=== PATIENT | female | born 1950 | race African-American/Black ===

== ENCOUNTER 2018-05-17 08:40 | Inpatient (IN) ==
[2018-05-17 09:48] LABS: Basophils % 0.1 % (0.0-0.8); Eosinophils % 0.1 % (0.00-10.9); Hematocrit 27.9 VOL% (35.7-47.0); Hemoglobin 9.4 GM/DL (12.0-16.0); Immature Granulocytes % 0.6 %; Immature Granulocytes Absolute 0.05 #; Lymphocytes # 0.3 10*3/uL (1.4-4.0); Lymphocytes % 3.4 % (21.3-54.2); Mean Corpuscular HGB Conc 33.7 GM/DL (32-36); Mean Corpuscular Hemoglobin 31 PG (27-34); Mean Corpuscular Volume 92.7 FL (87-102); Mean Platelet Volume 13.2 FL (9.6-12.0); Monocytes # 0.8 10*3/uL (0.11-0.8); Monocytes % 9.1 % (1.7-12.7); Neutrophils # 7.1 10*3/uL (1.4-7.4); Neutrophils % 86.7 % (38.7-73.9); Red Blood Count 3.01 MC/CUMM (3.8-5.5); Red Cell Distribution Width 15.5 % (9.3-17.3); White Blood Count 8.2 T/CUMM (4-12)
[2018-05-17 09:51] LABS: Platelet Count 74 T/CUMM (130-400)
[2018-05-17 10:07] LABS: Band Neutrophils 4 % (0-10); Giant Platelets Few; Hypochromasia 1+; Lymphocytes 3 % (20-55); Ovalocytes Slight; Platelet Estimate Decreased; Segmented Neutrophils 88 % (50-85); Total Cells Counted 100
[2018-05-17] MEDS ORDERED: VANCOMYCIN INJ 1,000 MG in SODIUM CHLORIDE 0.9% 250 ML IV STA (10:12)
[2018-05-17] MEDS ORDERED: SODIUM CHLORIDE 0.9% 250 ML IV ONE (10:25)
[2018-05-17] MEDS ORDERED: VANCOMYCIN 1,000 MG VIAL ONE (10:25)
[2018-05-17] MEDS ORDERED: HEPARIN 5,000 UNIT/1 ML VIAL ONE (10:32)
[2018-05-17] MEDS ORDERED: LIDOCAINE 1%/EPI INJ 20 ML VIAL ONE (10:32)
[2018-05-17] MEDS ORDERED: BUPIVACAINE MPF 0.25% /EPI 30 ML VIAL ONE (10:32)
[2018-05-17] MEDS ORDERED: BUPIVACAINE 0.5% 50 ML VIAL ONE (10:36)
[2018-05-17] MEDS ORDERED: LIDOCAINE 1% 20 ML VIAL ONE (10:36)
[2018-05-17 11:25] LABS: Calcium 8.6 MG/DL (8.5-10.1); Osmolality,Calculated 278.8 MOS/KG (273-304); Potassium 3.9 MMOL/L (3.5-5.1)
[2018-05-17] MEDS ORDERED: SODIUM CHLORIDE 0.9% 250 ML IV SCH (12:00)
[2018-05-17] MEDS ORDERED: HYDROmorphone 2 MG/1 ML VIAL IV PRN (13:50)
[2018-05-17] MEDS ORDERED: GLUCAGON 1 MG VIAL IM PRN (13:50)
[2018-05-17] MEDS ORDERED: PROMETHAZINE 25 MG/1 ML VIAL IM PRN (13:50)
[2018-05-17] MEDS ORDERED: DEXTROSE 50% 25 GM/50 ML VIAL IV PRN (13:50)
[2018-05-17] MEDS ORDERED: ONDANSETRON 4 MG/2 ML VIAL IV PRN (13:50)
[2018-05-17] MEDS ORDERED: VANCOMYCIN INJ 500 MG in SODIUM CHLORIDE 0.9% 100 ML IV PRN (13:58)
[2018-05-17] MEDS ORDERED: PROPOFOL 200 MG/20 ML VIAL IV ONE (14:19)
[2018-05-17] MEDS ORDERED: fentaNYL 100 MCG/2 ML VIAL ONE (14:19)
[2018-05-17] MEDS ORDERED: EPOETIN ALFA 10,000 UNIT/1 ML VIAL IV PRN (14:19)
[2018-05-17] MEDS ORDERED: MIDAZOLAM 2 MG/2 ML VIAL ONE (14:19)
[2018-05-17] MEDS ORDERED: SODIUM CHLORIDE 0.9% 500 ML IV ONE (14:20)
[2018-05-17] MEDS ORDERED: KETAMINE 500 MG/10 ML VIAL ONE (14:20)
[2018-05-17] MEDS ORDERED: VANCOMYCIN INJ 250 MG in SODIUM CHLORIDE 0.9% 100 ML IV ONE (15:00)
[2018-05-17] MEDS ORDERED: INFLUENZA VIRUS VACCINE 0.5 ML SYRINGE IM ONE (15:30)
[2018-05-17] MEDS ORDERED: HEPARIN 10,000 UNIT/10 ML VIAL IV PRN (16:21)
[2018-05-17] MEDS: CALCIUM ACETATE 667 MG CAPSULE PO SCH (19:47)
[2018-05-17] MEDS: CARVEDILOL 12.5 MG TABLET PO SCH (23:38)
[2018-05-18] MEDS: LOSARTAN 50 MG TABLET PO SCH (09:44)
[2018-05-18] MEDS: CALCIUM ACETATE 667 MG CAPSULE PO SCH ×3 (09:44→17:41)
[2018-05-18] MEDS: CARVEDILOL 12.5 MG TABLET PO SCH ×2 (09:45→20:46)
[2018-05-18] MEDS: SODIUM HYPOCHLORITE 0.25% IRRIG 473 ML BOTTLE TOP SCH (11:13)
[2018-05-18] MEDS: NAFCILLIN 2,000 MG in SODIUM CHLORIDE 0.9% 100 ML IV SCH ×3 (13:56→20:46)
[2018-05-18] MEDS ORDERED: MORPHINE 4 MG/1 ML VIAL IV PRN (20:28)
[2018-05-18] MEDS ORDERED: ASPIRIN CHEW 81 MG TABLET PO ONE (20:28)
[2018-05-18] MEDS ORDERED: NITROGLYCERIN SL 0.4 MG TABLET SL PRN (20:28)
[2018-05-18 21:06] LABS: Basophils % 0.2 % (0.0-0.8); Eosinophils # 0.1 10*3/uL (0.0-0.87); Eosinophils % 0.8 % (0.00-10.9); Hematocrit 24.7 VOL% (35.7-47.0); Hemoglobin 8.4 GM/DL (12.0-16.0); Immature Granulocytes % 0.8 %; Immature Granulocytes Absolute 0.09 #; Lymphocytes # 0.9 10*3/uL (1.4-4.0); Lymphocytes % 7.5 % (21.3-54.2); Mean Corpuscular Hemoglobin 31 PG (27-34); Mean Corpuscular Volume 91.1 FL (87-102); Mean Platelet Volume 13.3 FL (9.6-12.0); Monocytes # 1.6 10*3/uL (0.11-0.8); Monocytes % 13.7 % (1.7-12.7); Neutrophils # 8.7 10*3/uL (1.4-7.4); Red Blood Count 2.71 MC/CUMM (3.8-5.5); White Blood Count 11.3 T/CUMM (4-12)
[2018-05-18 21:07] LABS: Platelet Count 94 T/CUMM (130-400)
[2018-05-18 21:23] LABS: Platelet Estimate Decreased
[2018-05-18 21:32] LABS: Albumin 2.4 G/DL (3.4-5.0); Bilirubin,Total 1.1 MG/DL (0.2-1.0); Calcium 8.8 MG/DL (8.5-10.1); Osmolality,Calculated 276.7 MOS/KG (273-304); Potassium 4.1 MMOL/L (3.5-5.1); Total Protein 5.6 G/DL (6.4-8.3)
[2018-05-19] MEDS: NAFCILLIN 2,000 MG in SODIUM CHLORIDE 0.9% 100 ML IV SCH ×5 (01:45→16:46)
[2018-05-19] MEDS: CALCIUM ACETATE 667 MG CAPSULE PO SCH ×3 (09:19→16:46)
[2018-05-19] MEDS: CARVEDILOL 12.5 MG TABLET PO SCH ×2 (09:19→21:15)
[2018-05-19] MEDS: LOSARTAN 50 MG TABLET PO SCH (09:19)
[2018-05-19] MEDS: SODIUM HYPOCHLORITE 0.25% IRRIG 473 ML BOTTLE TOP SCH (14:47)
[2018-05-20] MEDS: NAFCILLIN 2,000 MG in SODIUM CHLORIDE 0.9% 100 ML IV SCH ×4 (01:34→16:28)
[2018-05-20] MEDS: CALCIUM ACETATE 667 MG CAPSULE PO SCH ×3 (09:30→17:25)
[2018-05-20] MEDS ORDERED: LIDOCAINE 1%/EPI INJ 20 ML VIAL ONE (09:40)
[2018-05-20] MEDS ORDERED: BUPIVACAINE 0.5% /EPI 10 ML VIAL ONE (09:40)
[2018-05-20] MEDS ORDERED: INFLUENZA VIRUS VACCINE 0.5 ML SYRINGE IM ONE (10:00)
[2018-05-20] MEDS ORDERED: SEVOFLURANE 1 UNIT/15 MINUTE INH ONE (10:48)
[2018-05-20] MEDS ORDERED: ONDANSETRON 4 MG/2 ML VIAL ONE (10:48)
[2018-05-20] MEDS ORDERED: METOPROLOL TARTRATE 5 MG/5 ML VIAL IV ONE (10:48)
[2018-05-20] MEDS ORDERED: PROPOFOL 0 MG/0 ML BOTTLE IV ONE (10:48)
[2018-05-20] MEDS ORDERED: fentaNYL 100 MCG/2 ML VIAL ONE (10:48)
[2018-05-20] MEDS ORDERED: MIDAZOLAM 2 MG/2 ML VIAL ONE (10:48)
[2018-05-20] MEDS ORDERED: PROPOFOL 200 MG/20 ML VIAL IV ONE (10:49)
[2018-05-20] MEDS ORDERED: DEXTROSE 50% 25 GM/50 ML VIAL IV PRN (11:15)
[2018-05-20] MEDS ORDERED: GLUCAGON 1 MG VIAL IM PRN (11:15)
[2018-05-20] MEDS: INSULIN REGULAR 100 UNIT/ML SUBCUT SCH ×2 (13:08→16:30)
[2018-05-20] MEDS: SODIUM HYPOCHLORITE 0.25% IRRIG 473 ML BOTTLE TOP SCH (14:06)
[2018-05-20] MEDS: CARVEDILOL 12.5 MG TABLET PO SCH (15:01)
[2018-05-20] MEDS: LOSARTAN 50 MG TABLET PO SCH (15:01)
[2018-05-20 22:12] VITALS: BP 142/88
== END 2018-05-20 17:35 | disposition swing bed (61) | DRG 252 ==
LOC: N.ED 08:40 → N.3E 11:10 → N.EDINP 12:26 → N.3E 13:44
PROVIDERS: ADMIT Emergency Medicine; ATTEND Emergency Medicine

== ENCOUNTER 2018-06-25 12:49 | Inpatient (IN) ==
[2018-06-25 13:40] LABS: Basophils % 0.4 % (0.0-0.8); Eosinophils # 0.1 10*3/uL (0.0-0.87); Eosinophils % 0.7 % (0.00-10.9); Immature Granulocytes % 1.2 %; Immature Granulocytes Absolute 0.08 #; Lymphocytes # 1.3 10*3/uL (1.4-4.0); Lymphocytes % 18.9 % (21.3-54.2); Mean Corpuscular HGB Conc 31.5 GM/DL (32-36); Mean Corpuscular Hemoglobin 34 PG (27-34); Mean Corpuscular Volume 107.3 FL (87-102); Monocytes # 0.7 10*3/uL (0.11-0.8); Monocytes % 9.4 % (1.7-12.7); Neutrophils # 4.8 10*3/uL (1.4-7.4); Neutrophils % 69.4 % (38.7-73.9); Platelet Count 194 T/CUMM (130-400); Red Blood Count 1.51 MC/CUMM (3.8-5.5); White Blood Count 6.9 T/CUMM (4-12)
[2018-06-25 13:51] LABS: Hematocrit 16.2 VOL% (35.7-47.0); Hemoglobin 5.1 GM/DL (12.0-16.0)
[2018-06-25 14:00] LABS: Alanine Aminotransferase < 6 U/L (13-56); Albumin 2.3 G/DL (3.4-5.0); Alkaline Phosphatase 52 U/L (45-117); Aspartate Amino Transferase 22 U/L (0-37); Blood Urea Nitrogen 6 MG/DL (7-18); Calcium 8.3 MG/DL (8.5-10.1); Glucose 104 MG/DL (74-106); Osmolality,Calculated 276.4 MOS/KG (273-304); Potassium 3.2 MMOL/L (3.5-5.1); Sodium 140 MMOL/L (136-145); Total Protein 6.7 G/DL (6.4-8.3)
[2018-06-25] MEDS ORDERED: PANTOPRAZOLE 40 MG VIAL IV STA (14:20)
[2018-06-25 14:41] LABS: Hypochromasia 2+; Macrocytosis 1+
[2018-06-25 14:42] LABS: Platelet Estimate Adequate; Stomatocytes Few
[2018-06-25] MEDS ORDERED: PROMETHAZINE 25 MG/1 ML VIAL IM PRN (15:45)
[2018-06-25] MEDS ORDERED: ONDANSETRON 4 MG/2 ML VIAL IV PRN (15:45)
[2018-06-25] MEDS ORDERED: SODIUM CHLORIDE 0.9% 1,000 ML IV PRN ×2 (15:45→15:48)
[2018-06-25] MEDS ORDERED: cloNIDine 0.1 MG TABLET PO SCH (21:00)
[2018-06-25] MEDS: PANTOPRAZOLE 40 MG VIAL IV SCH (21:31)
[2018-06-25] MEDS: CARVEDILOL 25 MG TABLET PO SCH (21:31)
[2018-06-26 04:46] LABS: Basophils % 0.5 % (0.0-0.8); Eosinophils # 0.1 10*3/uL (0.0-0.87); Eosinophils % 1.2 % (0.00-10.9); Hematocrit 19.9 VOL% (35.7-47.0); Immature Granulocytes % 1.2 %; Immature Granulocytes Absolute 0.07 #; Lymphocytes # 1.1 10*3/uL (1.4-4.0); Mean Corpuscular HGB Conc 31.2 GM/DL (32-36); Mean Corpuscular Hemoglobin 32 PG (27-34); Mean Corpuscular Volume 103.6 FL (87-102); Mean Platelet Volume 11.3 FL (9.6-12.0); Monocytes # 0.8 10*3/uL (0.11-0.8); Monocytes % 12.4 % (1.7-12.7); Neutrophils # 4.1 10*3/uL (1.4-7.4); Neutrophils % 66.7 % (38.7-73.9); Platelet Count 166 T/CUMM (130-400); Red Blood Count 1.92 MC/CUMM (3.8-5.5); White Blood Count 6.1 T/CUMM (4-12)
[2018-06-26 05:04] LABS: Alanine Aminotransferase < 6 U/L (13-56); Alkaline Phosphatase 45 U/L (45-117); Aspartate Amino Transferase 19 U/L (0-37); Blood Urea Nitrogen 9 MG/DL (7-18); Calcium 8.6 MG/DL (8.5-10.1); Glucose 93 MG/DL (74-106); Osmolality,Calculated 277.4 MOS/KG (273-304); Potassium 3.9 MMOL/L (3.5-5.1); Sodium 140 MMOL/L (136-145); Total Protein 6.1 G/DL (6.4-8.3)
[2018-06-26 05:11] LABS: Hemoglobin 6.2 GM/DL (12.0-16.0)
[2018-06-26 06:54] LABS: Platelet Estimate Normal
[2018-06-26 06:55] LABS: Hypochromasia 2+
[2018-06-26 06:56] LABS: Microcytosis 1+
[2018-06-26] MEDS ORDERED: SODIUM CHLORIDE 0.9% 1,000 ML IV PRN ×2 (07:28→10:35)
[2018-06-26] MEDS: CARVEDILOL 25 MG TABLET PO SCH ×2 (08:40→16:28)
[2018-06-26] MEDS: PANTOPRAZOLE 40 MG VIAL IV SCH ×2 (08:40→21:21)
[2018-06-26] MEDS ORDERED: amLODIPine 10 MG TABLET PO SCH (09:00)
[2018-06-27 04:48] LABS: Basophils % 0.6 % (0.0-0.8); Eosinophils # 0.1 10*3/uL (0.0-0.87); Eosinophils % 1.5 % (0.00-10.9); Hematocrit 23.3 VOL% (35.7-47.0); Hemoglobin 7.3 GM/DL (12.0-16.0); Immature Granulocytes % 1.7 %; Immature Granulocytes Absolute 0.12 #; Lymphocytes % 13.8 % (21.3-54.2); Mean Corpuscular HGB Conc 31.3 GM/DL (32-36); Mean Corpuscular Hemoglobin 32 PG (27-34); Mean Corpuscular Volume 100.4 FL (87-102); Mean Platelet Volume 11.5 FL (9.6-12.0); Monocytes # 0.7 10*3/uL (0.11-0.8); Monocytes % 10.1 % (1.7-12.7); Neutrophils # 5.2 10*3/uL (1.4-7.4); Neutrophils % 72.3 % (38.7-73.9); Platelet Count 150 T/CUMM (130-400); Red Blood Count 2.32 MC/CUMM (3.8-5.5); Red Cell Distribution Width 21.4 % (9.3-17.3); White Blood Count 7.2 T/CUMM (4-12)
[2018-06-27 05:10] LABS: Alanine Aminotransferase < 6 U/L (13-56); Alkaline Phosphatase 47 U/L (45-117); Aspartate Amino Transferase 11 U/L (0-37); Blood Urea Nitrogen 21 MG/DL (7-18); Calcium 8.6 MG/DL (8.5-10.1); Glucose 101 MG/DL (74-106); Osmolality,Calculated 275.8 MOS/KG (273-304); Potassium 3.9 MMOL/L (3.5-5.1); Sodium 137 MMOL/L (136-145); Total Protein 5.8 G/DL (6.4-8.3)
[2018-06-27] MEDS ORDERED: SODIUM CHLORIDE 0.9% 1,000 ML IV PRN (07:03)
[2018-06-27] MEDS: CARVEDILOL 25 MG TABLET PO SCH ×3 (08:00→18:41)
[2018-06-27] MEDS: PANTOPRAZOLE 40 MG VIAL IV SCH ×2 (09:48→22:03)
[2018-06-27] MEDS ORDERED: PROPOFOL 200 MG/20 ML VIAL IV ONE (11:15)
[2018-06-27] MEDS ORDERED: HEPARIN 10,000 UNIT/10 ML VIAL IV SCH (15:30)
[2018-06-28 05:25] LABS: Hematocrit 29.6 VOL% (35.7-47.0); Mean Corpuscular HGB Conc 32.4 GM/DL (32-36)
[2018-06-28 05:53] LABS: Basophils # 0.1 10*3/uL (0.0-0.2); Basophils % 0.6 % (0.0-0.8); Eosinophils # 0.1 10*3/uL (0.0-0.87); Eosinophils % 1.5 % (0.00-10.9); Immature Granulocytes % 2.1 %; Immature Granulocytes Absolute 0.17 #; Lymphocytes # 1.1 10*3/uL (1.4-4.0); Lymphocytes % 13.7 % (21.3-54.2); Mean Corpuscular Hemoglobin 32 PG (27-34); Mean Corpuscular Volume 98.3 FL (87-102); Mean Platelet Volume 11.7 FL (9.6-12.0); Monocytes # 0.8 10*3/uL (0.11-0.8); Monocytes % 10.2 % (1.7-12.7); NRBC # 0.06 10*3/uL; Neutrophils # 5.8 10*3/uL (1.4-7.4); Neutrophils % 71.9 % (38.7-73.9); Platelet Count 136 T/CUMM (130-400); Red Cell Distribution Width 19.8 % (9.3-17.3)
[2018-06-28 06:01] LABS: Alanine Aminotransferase < 6 U/L (13-56); Alkaline Phosphatase 50 U/L (45-117); Aspartate Amino Transferase 13 U/L (0-37); Blood Urea Nitrogen 12 MG/DL (7-18); Calcium 8.4 MG/DL (8.5-10.1); Glucose 101 MG/DL (74-106); Osmolality,Calculated 274.7 MOS/KG (273-304); Potassium 3.6 MMOL/L (3.5-5.1); Sodium 138 MMOL/L (136-145)
[2018-06-28 06:10] LABS: Red Blood Count 3.01 MC/CUMM (3.8-5.5)
[2018-06-28 06:11] LABS: Hemoglobin 9.6 GM/DL (12.0-16.0)
[2018-06-28 06:26] LABS: Platelet Estimate Decreased; Polychromasia Few
[2018-06-28] MEDS: PANTOPRAZOLE 40 MG VIAL IV SCH (09:43)
[2018-06-28] MEDS: CARVEDILOL 25 MG TABLET PO SCH (09:43)
[2018-06-28 11:12] VITALS: BP 120/84
== END 2018-06-28 12:21 | disposition home or self-care (01) | DRG 377 ==
LOC: N.ED 12:49 → SUATTDRO 15:45 → N.EDINP 15:45 → N.5E 16:55
PROVIDERS: ADMIT Internal Medicine; ATTEND Internal Medicine Infectious Disease

== ENCOUNTER 2018-11-02 05:33 | Inpatient (IN) ==
[2018-11-02] MEDS ORDERED: ceFAZolin 1,000 MG in SYRINGE 1 EACH IV ONE (06:00)
[2018-11-02 06:28] LABS: Eosinophils # 0.2 10*3/uL (0.0-0.87); Eosinophils % 5.4 % (0.00-10.9); Hematocrit 29.7 VOL% (35.7-47.0); Hemoglobin 9.1 GM/DL (12.0-16.0); Immature Granulocytes % 0.5 %; Immature Granulocytes Absolute 0.02 #; Lymphocytes # 1.1 10*3/uL (1.4-4.0); Mean Corpuscular HGB Conc 30.6 GM/DL (32-36); Mean Corpuscular Volume 99.7 FL (87-102); Mean Platelet Volume 10.6 FL (9.6-12.0); Neutrophils % 53.1 % (38.7-73.9); Platelet Count 205 T/CUMM (130-400); Red Blood Count 2.98 MC/CUMM (3.8-5.5); Red Cell Distribution Width 16.2 % (9.3-17.3); White Blood Count 4.1 T/CUMM (4-12)
[2018-11-02] MEDS: SODIUM CHLORIDE 0.9% 250 ML IV SCH ×2 (06:32→18:46)
[2018-11-02] MEDS ORDERED: ceFAZolin 1,000 MG VIAL ONE (06:36)
[2018-11-02 06:45] LABS: Calcium 8.7 MG/DL (8.5-10.1); Osmolality,Calculated 274.8 MOS/KG (273-304)
[2018-11-02] MEDS ORDERED: HEPARIN 5,000 UNIT/1 ML VIAL ONE (06:56)
[2018-11-02] MEDS ORDERED: THROMBIN TOPICAL (RECOMBINANT) 5,000 UNIT VIAL TOP ONE (06:56)
[2018-11-02] MEDS ORDERED: LIDOCAINE 1%/EPI INJ 20 ML VIAL ONE (06:56)
[2018-11-02] MEDS ORDERED: SODIUM CHLORIDE 0.9% 250 ML IV ONE (09:31)
[2018-11-02] MEDS ORDERED: PHENYLEPHRINE 1 MG/10 ML SYRINGE IV ONE (09:31)
[2018-11-02] MEDS ORDERED: MIDAZOLAM 2 MG/2 ML VIAL ONE (09:31)
[2018-11-02] MEDS ORDERED: fentaNYL 100 MCG/2 ML VIAL ONE (09:31)
[2018-11-02] MEDS ORDERED: PROPOFOL 200 MG/20 ML VIAL IV ONE (09:31)
[2018-11-02] MEDS ORDERED: SEVOFLURANE 1 UNIT/15 MINUTE INH ONE (09:31)
[2018-11-02] MEDS ORDERED: BISACODYL 5 MG TABLET PO PRN (10:10)
[2018-11-02] MEDS ORDERED: ONDANSETRON 4 MG/2 ML VIAL IV PRN (10:10)
[2018-11-02] MEDS ORDERED: ALBUTEROL/IPRATROPIUM 3 ML NEB RESP TX PRN (10:10)
[2018-11-02] MEDS ORDERED: MORPHINE 4 MG/1 ML VIAL IV PRN ×2 (10:10)
[2018-11-02] MEDS ORDERED: VANCOMYCIN INJ 1,000 MG in SODIUM CHLORIDE 0.9% 250 ML IV SCH (10:30)
[2018-11-02] MEDS ORDERED: VANCOMYCIN INJ 1,250 MG in SODIUM CHLORIDE 0.9% 250 ML IV ONE (11:00)
[2018-11-02] MEDS: ACETAMINOPHEN 325 MG TABLET PO PRN (19:11)
[2018-11-02] MEDS: cloNIDine 0.1 MG TABLET PO SCH (21:18)
[2018-11-02] MEDS: APIXABAN 5 MG TABLET PO SCH (21:19)
[2018-11-02] MEDS: CARVEDILOL 25 MG TABLET PO SCH (21:19)
[2018-11-02] MEDS: hydrALAZINE 25 MG TABLET PO SCH (21:19)
[2018-11-03 04:40] LABS: Basophils % 0.6 % (0.0-0.8); Eosinophils # 0.2 10*3/uL (0.0-0.87); Eosinophils % 3.2 % (0.00-10.9); Hematocrit 28.1 VOL% (35.7-47.0); Hemoglobin 8.5 GM/DL (12.0-16.0); Immature Granulocytes % 0.6 %; Immature Granulocytes Absolute 0.03 #; Lymphocytes # 0.5 10*3/uL (1.4-4.0); Mean Corpuscular HGB Conc 30.2 GM/DL (32-36); Mean Corpuscular Volume 99.6 FL (87-102); Mean Platelet Volume 10.6 FL (9.6-12.0); Monocytes % 11.8 % (1.7-12.7); Neutrophils % 73.8 % (38.7-73.9); Platelet Count 199 T/CUMM (130-400); Red Blood Count 2.82 MC/CUMM (3.8-5.5); Red Cell Distribution Width 16.5 % (9.3-17.3)
[2018-11-03 05:00] LABS: Calcium 8.1 MG/DL (8.5-10.1)
[2018-11-03] MEDS: SODIUM CHLORIDE 0.9% 250 ML IV SCH ×2 (08:08→23:53)
[2018-11-03] MEDS: cloNIDine 0.1 MG TABLET PO SCH ×3 (08:22→20:52)
[2018-11-03] MEDS: ACETAMINOPHEN 325 MG TABLET PO PRN (08:22)
[2018-11-03] MEDS: hydrALAZINE 25 MG TABLET PO SCH ×4 (08:23→20:54)
[2018-11-03] MEDS: APIXABAN 5 MG TABLET PO SCH ×2 (08:23→20:52)
[2018-11-03] MEDS: PANTOPRAZOLE 40 MG TABLET PO SCH (08:23)
[2018-11-03] MEDS: CARVEDILOL 25 MG TABLET PO SCH ×3 (08:23→20:54)
[2018-11-03] MEDS ORDERED: POTASSIUM CHLORIDE 20 MEQ TABLET PO SCH (09:00)
[2018-11-03] MEDS: POTASSIUM CHLORIDE 20 MEQ TABLET PO SCH (09:00)
[2018-11-03] MEDS ORDERED: LOSARTAN 50 MG TABLET PO SCH (09:00)
[2018-11-03] MEDS: LOSARTAN 50 MG TABLET PO SCH (09:00)
[2018-11-03] MEDS ORDERED: HEPARIN 10,000 UNIT/10 ML VIAL IV SCH (16:00)
[2018-11-03] MEDS ORDERED: VANCOMYCIN INJ 500 MG in SODIUM CHLORIDE 0.9% 100 ML IV ONE (17:00)
[2018-11-03] MEDS ORDERED: VANCOMYCIN INJ 500 MG in SODIUM CHLORIDE 0.9% 100 ML IV PRN (18:00)
[2018-11-04] MEDS: APIXABAN 5 MG TABLET PO SCH (09:00)
[2018-11-04] MEDS: CARVEDILOL 25 MG TABLET PO SCH (09:01)
[2018-11-04] MEDS: cloNIDine 0.1 MG TABLET PO SCH (09:01)
[2018-11-04] MEDS: PANTOPRAZOLE 40 MG TABLET PO SCH (09:01)
[2018-11-04] MEDS: hydrALAZINE 25 MG TABLET PO SCH (09:01)
[2018-11-04] MEDS: LOSARTAN 50 MG TABLET PO SCH (09:01)
[2018-11-04] MEDS: POTASSIUM CHLORIDE 20 MEQ TABLET PO SCH (09:02)
[2018-11-04 11:07] VITALS: BP 135/74
== END 2018-11-04 12:30 | disposition home or self-care (01) | DRG 252 ==
LOC: N.OR 05:33 → N.SDSINP 05:38 → N.3E 09:50
PROVIDERS: ADMIT Surgery; ATTEND Surgery
PROC: VAVDCFI (2018-11-02 07:11)

== ENCOUNTER 2019-04-16 15:51 | Inpatient (IN) ==
[2019-04-16] MEDS ORDERED: MORPHINE 4 MG/1 ML VIAL ONE (16:16)
[2019-04-16] MEDS ORDERED: hydrALAZINE 20 MG/1 ML VIAL ONE (16:17)
[2019-04-16] MEDS ORDERED: MORPHINE 4 MG/1 ML VIAL IV STA ×2 (16:22→16:26)
[2019-04-16] MEDS ORDERED: hydrALAZINE 20 MG/1 ML VIAL IV STA ×2 (16:23→16:34)
[2019-04-16 16:34] LABS: Basophils # 0.1 10*3/uL (0.0-0.2); Basophils % 0.8 % (0.0-0.8); Eosinophils # 0.1 10*3/uL (0.0-0.87); Eosinophils % 1.2 % (0.00-10.9); Hematocrit 34.4 VOL% (35.7-47.0); Hemoglobin 11.2 GM/DL (12.0-16.0); Immature Granulocytes % 0.3 %; Immature Granulocytes Absolute 0.02 #; Lymphocytes # 0.9 10*3/uL (1.4-4.0); Lymphocytes % 13.5 % (21.3-54.2); Mean Corpuscular HGB Conc 32.6 GM/DL (32-36); Mean Platelet Volume 10.9 FL (9.6-12.0); Monocytes % 10.2 % (1.7-12.7); Platelet Count 193 T/CUMM (130-400); Red Cell Distribution Width 17.6 % (9.3-17.3); White Blood Count 6.6 T/CUMM (4-12)
[2019-04-16 16:44] LABS: ABG Base Excess 0.6 MMOL/L (-2.5-2.5); ABG HCO3 24.9 MMOL/L (20-26); ABG Oxygen Saturation 94.3 % (95-100); ABG PCO2 42.6 MM HG (35-48); ABG PH 7.389 (7.35-7.45); ABG PO2 76.8 MM HG (80-95); Allen Test Positive
[2019-04-16] MEDS ORDERED: ACETAMINOPHEN 325 MG TABLET PO PRN (17:22)
[2019-04-16] MEDS ORDERED: LACTULOSE 20 GM/30 ML UDCUP PO PRN (17:22)
[2019-04-16 17:23] LABS: Albumin 3.8 G/DL (3.4-5.0); Bilirubin,Total 0.9 MG/DL (0.2-1.0); Calcium 9.1 MG/DL (8.5-10.1); Osmolality,Calculated 294.5 MOS/KG (273-304); Total Protein 8.3 G/DL (6.4-8.3)
[2019-04-16] MEDS ORDERED: hydrALAZINE 20 MG/1 ML VIAL IV PRN (17:29)
[2019-04-16] MEDS ORDERED: ALBUTEROL 2.5 MG/3 ML NEB RESP TX PRN (17:52)
[2019-04-16] MEDS ORDERED: cefTRIAXone 1,000 MG VIAL ONE (18:11)
[2019-04-16] MEDS: cefTRIAXone 1,000 MG in SYRINGE 1 EACH IV SCH (18:27)
[2019-04-16] MEDS: ONDANSETRON 4 MG/2 ML VIAL IV PRN (18:31)
[2019-04-16] MEDS: ALBUTEROL 2.5 MG/3 ML NEB RESP TX SCH ×2 (20:30→23:54)
[2019-04-16] MEDS: AZITHROMYCIN INJ 500 MG in SODIUM CHLORIDE 0.9% 250 ML IV SCH (20:55)
[2019-04-16] MEDS: APIXABAN 5 MG TABLET PO SCH (21:58)
[2019-04-16] MEDS: hydrALAZINE 25 MG TABLET PO SCH (21:58)
[2019-04-16] MEDS: carvediloL 25 MG TABLET PO SCH (21:58)
[2019-04-16] MEDS: cloNIDine 0.1 MG TABLET PO SCH (21:58)
[2019-04-17 04:08] LABS: Basophils % 0.5 % (0.0-0.8); Eosinophils % 0.2 % (0.00-10.9); Hematocrit 36.1 VOL% (35.7-47.0); Hemoglobin 11.4 GM/DL (12.0-16.0); Immature Granulocytes % 0.3 %; Immature Granulocytes Absolute 0.02 #; Lymphocytes # 0.5 10*3/uL (1.4-4.0); Mean Corpuscular HGB Conc 31.6 GM/DL (32-36); Mean Corpuscular Volume 94.3 FL (87-102); Mean Platelet Volume 10.9 FL (9.6-12.0); Monocytes % 6.7 % (1.7-12.7); Neutrophils % 84.3 % (38.7-73.9); Platelet Count 152 T/CUMM (130-400); Red Blood Count 3.83 MC/CUMM (3.8-5.5); Red Cell Distribution Width 17.6 % (9.3-17.3)
[2019-04-17 04:40] LABS: Calcium 9.3 MG/DL (8.5-10.1); Osmolality,Calculated 288.4 MOS/KG (273-304); Risk Ratio 2.6; Thyroid Stimulating Hormone 0.753 uIU/ml (0.358-3.74); VLDL CHOLESTEROL 13.4 MG/DL
[2019-04-17] MEDS ORDERED: HEPARIN 10,000 UNIT/10 ML VIAL IV PRN (06:51)
[2019-04-17] MEDS: ALBUTEROL 2.5 MG/3 ML NEB RESP TX SCH ×3 (08:00→19:54)
[2019-04-17] MEDS: amLODIPine 10 MG TABLET PO SCH (13:10)
[2019-04-17] MEDS: carvediloL 25 MG TABLET PO SCH ×2 (13:10→21:00)
[2019-04-17] MEDS: hydrALAZINE 25 MG TABLET PO SCH ×3 (13:10→21:00)
[2019-04-17] MEDS: APIXABAN 5 MG TABLET PO SCH ×2 (13:10→21:00)
[2019-04-17] MEDS: cloNIDine 0.1 MG TABLET PO SCH ×2 (13:10→21:00)
[2019-04-17] MEDS: LOSARTAN 50 MG TABLET PO SCH (13:10)
[2019-04-17] MEDS: PANTOPRAZOLE 40 MG VIAL IV SCH (13:36)
[2019-04-17] MEDS: cefTRIAXone 1,000 MG in SYRINGE 1 EACH IV SCH (18:50)
[2019-04-17] MEDS: AZITHROMYCIN INJ 500 MG in SODIUM CHLORIDE 0.9% 250 ML IV SCH (21:00)
[2019-04-17] MEDS: ONDANSETRON 4 MG/2 ML VIAL IV PRN (22:26)
[2019-04-17] MEDS: MORPHINE 4 MG/1 ML VIAL IV PRN (22:26)
[2019-04-18] MEDS: ALBUTEROL 2.5 MG/3 ML NEB RESP TX SCH ×4 (00:09→19:29)
[2019-04-18 05:38] LABS: Calcium 8.6 MG/DL (8.5-10.1); Osmolality,Calculated 276.2 MOS/KG (273-304)
[2019-04-18] MEDS: PANTOPRAZOLE 40 MG VIAL IV SCH (08:07)
[2019-04-18] MEDS: APIXABAN 5 MG TABLET PO SCH ×2 (08:07→20:59)
[2019-04-18] MEDS: amLODIPine 10 MG TABLET PO SCH (08:07)
[2019-04-18] MEDS: LOSARTAN 50 MG TABLET PO SCH (08:07)
[2019-04-18] MEDS: hydrALAZINE 25 MG TABLET PO SCH ×3 (08:07→20:58)
[2019-04-18] MEDS: cloNIDine 0.1 MG TABLET PO SCH ×2 (08:07→20:59)
[2019-04-18] MEDS: carvediloL 25 MG TABLET PO SCH ×2 (08:08→20:59)
[2019-04-18] MEDS: cefTRIAXone 1,000 MG in SYRINGE 1 EACH IV SCH (17:11)
[2019-04-18] MEDS: AZITHROMYCIN INJ 500 MG in SODIUM CHLORIDE 0.9% 250 ML IV SCH (21:00)
[2019-04-19] MEDS: ALBUTEROL 2.5 MG/3 ML NEB RESP TX SCH ×3 (00:27→13:30)
[2019-04-19] MEDS ORDERED: PANTOPRAZOLE 40 MG TABLET PO SCH (09:00)
[2019-04-19] MEDS: hydrALAZINE 25 MG TABLET PO SCH ×3 (09:49→15:31)
[2019-04-19] MEDS: MORPHINE 4 MG/1 ML VIAL IV PRN (10:30)
[2019-04-19] MEDS: APIXABAN 5 MG TABLET PO SCH (12:38)
[2019-04-19] MEDS: carvediloL 25 MG TABLET PO SCH (12:38)
[2019-04-19] MEDS: amLODIPine 10 MG TABLET PO SCH (12:38)
[2019-04-19] MEDS: LOSARTAN 50 MG TABLET PO SCH (12:38)
[2019-04-19] MEDS: cloNIDine 0.1 MG TABLET PO SCH (12:38)
[2019-04-19 15:44] VITALS: BP 113/60
== END 2019-04-19 16:27 | disposition home or self-care (01) | DRG 291 ==
LOC: SUATTDRO → N.ED 15:51 → N.EDINP 17:22 → SUATTDRO 17:22 → N.CC 18:18 → N.5E 04-17 15:17
PROVIDERS: ADMIT Internal Medicine; ATTEND Internal Medicine

== ENCOUNTER 2019-05-15 07:38 | Inpatient (IN) ==
[2019-05-15] MEDS ORDERED: ALBUTEROL 2.5 MG/3 ML NEB RESP TX STA (07:52)
[2019-05-15] MEDS ORDERED: FUROSEMIDE 100 MG/10 ML VIAL IV STA (07:52)
[2019-05-15] MEDS ORDERED: hydrALAZINE 20 MG/1 ML VIAL IV STA (07:53)
[2019-05-15] MEDS ORDERED: PROPOFOL 1,000 MG/100 ML BOTTLE IV ONE (08:19)
[2019-05-15] MEDS ORDERED: ROCURONIUM 100 MG/10 ML VIAL IV ONE ×2 (08:28→10:26)
[2019-05-15] MEDS ORDERED: ETOMIDATE 20 MG/10 ML VIAL IV ONE (08:28)
[2019-05-15] MEDS: PROPOFOL 1,000 MG/100 ML BOTTLE IV SCH ×3 (09:00→23:41)
[2019-05-15 09:13] LABS: Apearance,Urine CLEAR (Clear); Bilirubin,Urine Negative (Negative); Blood, Urine Small mg/dL (Negative); Glucose,Urine (UA) >=500 mg/dL (Negative); Ketones,Urine Negative (Negative); Nitrite,Urine Negative (Negative); Protein,Urine 100 MG/DL; RBC,Urine <1 /HPF (0-4); Urine Color Straw (Yellow); Urine Specific Gravity 1.005 (1.001-1.035); Urine Urobilinogen < 2.0 EU/DL (0.2-1.0); WBC,Urine <1 /HPF (0-6)
[2019-05-15 09:17] LABS: INR 1.1; PT Patient Result 11.7 SECS (9.6-12.2)
[2019-05-15] MEDS ORDERED: MORPHINE 4 MG/1 ML VIAL IV PRN (09:19)
[2019-05-15] MEDS ORDERED: LACTULOSE 20 GM/30 ML UDCUP PO PRN (09:19)
[2019-05-15] MEDS ORDERED: ACETAMINOPHEN 325 MG TABLET PO PRN (09:19)
[2019-05-15] MEDS ORDERED: ALBUTEROL 2.5 MG/3 ML NEB RESP TX PRN (09:19)
[2019-05-15] MEDS ORDERED: ONDANSETRON 4 MG/2 ML VIAL IV PRN (09:19)
[2019-05-15 09:21] LABS: ABG Base Excess 4.4 MMOL/L (-2.5-2.5); ABG HCO3 27.9 MMOL/L (20-26); ABG Oxygen Saturation 99.9 % (95-100); ABG PCO2 37.9 MM HG (35-48); ABG PH 7.485 (7.35-7.45); ABG PO2 577.3 MM HG (80-95); ABG TCO2 29.1 MMOL/L (23-27)
[2019-05-15] MEDS: niCARdipine INJ 25 MG in SODIUM CHLORIDE 0.9% 240 ML IV PRN ×2 (09:29→15:46)
[2019-05-15] MEDS ORDERED: ENOXAPARIN 30 MG/0.3 ML SYRINGE SUBCUT SCH (09:30)
[2019-05-15 09:32] LABS: Albumin 3.7 G/DL (3.4-5.0); Bilirubin,Total 0.8 MG/DL (0.2-1.0); Calcium 8.5 MG/DL (8.5-10.1); Osmolality,Calculated 291.5 MOS/KG (273-304)
[2019-05-15 09:50] LABS: Risk Ratio 2.55; VLDL CHOLESTEROL 14.4 MG/DL
[2019-05-15] MEDS ORDERED: MIDAZOLAM 2 MG/2 ML VIAL ONE (10:15)
[2019-05-15] MEDS ORDERED: MIDAZOLAM 2 MG/2 ML VIAL IV STA ×2 (10:19→10:26)
[2019-05-15 11:04] LABS: ABG Base Excess 5.5 MMOL/L (-2.5-2.5); ABG HCO3 27.2 MMOL/L (20-26); ABG Oxygen Saturation 99.5 % (95-100); ABG PCO2 30.2 MM HG (35-48); ABG PH 7.573 (7.35-7.45); ABG TCO2 28.2 MMOL/L (23-27)
[2019-05-15 11:57] LABS: Basophils % 0.4 % (0.0-0.8); Eosinophils # 0.1 10*3/uL (0.0-0.87); Hematocrit 35.5 VOL% (35.7-47.0); Hemoglobin 11.2 GM/DL (12.0-16.0); Immature Granulocytes % 0.6 %; Immature Granulocytes Absolute 0.06 #; Lymphocytes # 0.6 10*3/uL (1.4-4.0); Lymphocytes % 6.5 % (21.3-54.2); Mean Corpuscular HGB Conc 31.5 GM/DL (32-36); Mean Corpuscular Volume 93.2 FL (87-102); Monocytes % 5.6 % (1.7-12.7); Neutrophils % 85.9 % (38.7-73.9); Platelet Count 214 T/CUMM (130-400); Red Blood Count 3.81 MC/CUMM (3.8-5.5); Red Cell Distribution Width 17.8 % (9.3-17.3); White Blood Count 9.3 T/CUMM (4-12)
[2019-05-15] MEDS ORDERED: DEXTROSE 50% 25 GM/50 ML VIAL IV PRN (14:49)
[2019-05-15] MEDS ORDERED: GLUCAGON 1 MG VIAL IM PRN (14:49)
[2019-05-15] MEDS ORDERED: LEVOFLOXACIN INJ 750 MG in PREMIX 1 EACH IV ONE (16:00)
[2019-05-15] MEDS ORDERED: LEVOFLOXACIN INJ 500 MG in PREMIX 1 EACH IV SCH (16:00)
[2019-05-15] MEDS: cloNIDine 0.1 MG TABLET PO SCH ×2 (17:24→23:04)
[2019-05-15] MEDS: amLODIPine 10 MG TABLET PO SCH (17:25)
[2019-05-15] MEDS: carvediloL 25 MG TABLET PO SCH (17:26)
[2019-05-15] MEDS: hydrALAZINE 25 MG TABLET PO SCH ×2 (17:26→23:02)
[2019-05-15] MEDS: LOSARTAN 50 MG TABLET PO SCH (17:55)
[2019-05-15] MEDS: INSULIN REGULAR 100 UNIT/ML SUBCUT SCH (18:39)
[2019-05-15] MEDS: FAMOTIDINE 20 MG/2 ML VIAL IV SCH (21:57)
[2019-05-15] MEDS: APIXABAN 5 MG TABLET PO SCH (21:57)
[2019-05-16] MEDS: INSULIN REGULAR 100 UNIT/ML SUBCUT SCH ×5 (00:28→23:59)
[2019-05-16 03:31] LABS: ABG Base Excess 6.1 MMOL/L (-2.5-2.5); ABG PCO2 31.5 MM HG (35-48); ABG TCO2 25.4 MMOL/L (23-27); Allen Test Positive; Pt O2 Delivery Device Ventilator
[2019-05-16 05:08] LABS: Basophils % 0.4 % (0.0-0.8); Eosinophils # 0.1 10*3/uL (0.0-0.87); Eosinophils % 1.2 % (0.00-10.9); Hematocrit 33.1 VOL% (35.7-47.0); Hemoglobin 10.1 GM/DL (12.0-16.0); Immature Granulocytes % 0.6 %; Immature Granulocytes Absolute 0.03 #; Lymphocytes # 0.6 10*3/uL (1.4-4.0); Lymphocytes % 12.5 % (21.3-54.2); Mean Corpuscular HGB Conc 30.5 GM/DL (32-36); Mean Corpuscular Volume 94.6 FL (87-102); Mean Platelet Volume 10.6 FL (9.6-12.0); Monocytes % 12.2 % (1.7-12.7); Neutrophils % 73.1 % (38.7-73.9); Platelet Count 177 T/CUMM (130-400); Red Cell Distribution Width 18.3 % (9.3-17.3)
[2019-05-16 05:40] LABS: Calcium 8.6 MG/DL (8.5-10.1); Osmolality,Calculated 279.7 MOS/KG (273-304)
[2019-05-16 05:46] LABS: Prealbumin 23.8 MG/DL (20-40)
[2019-05-16] MEDS: PROPOFOL 1,000 MG/100 ML BOTTLE IV SCH ×3 (06:22→15:17)
[2019-05-16] MEDS: APIXABAN 5 MG TABLET PO SCH ×2 (08:30→20:07)
[2019-05-16] MEDS: hydrALAZINE 25 MG TABLET PO SCH ×3 (08:31→20:07)
[2019-05-16] MEDS: amLODIPine 10 MG TABLET PO SCH (08:31)
[2019-05-16] MEDS: cloNIDine 0.1 MG TABLET PO SCH ×2 (08:31→20:07)
[2019-05-16] MEDS: LOSARTAN 50 MG TABLET PO SCH (08:31)
[2019-05-16] MEDS: carvediloL 25 MG TABLET PO SCH ×2 (08:31→17:35)
[2019-05-16] MEDS ORDERED: INFLUENZA VIRUS VACCINE 0.5 ML SYRINGE IM ONE (16:02)
[2019-05-16] MEDS: FAMOTIDINE 20 MG/2 ML VIAL IV SCH (20:07)
[2019-05-17] MEDS: PROPOFOL 1,000 MG/100 ML BOTTLE IV SCH ×2 (02:45→10:03)
[2019-05-17 03:13] LABS: ABG Base Excess 4.3 MMOL/L (-2.5-2.5); ABG HCO3 28.3 MMOL/L (20-26); ABG Oxygen Saturation 99.4 % (95-100); ABG PCO2 36.7 MM HG (35-48); ABG PH 7.487 (7.35-7.45); ABG TCO2 25.4 MMOL/L (23-27); Allen Test Positive; Pt O2 Delivery Device Ventilator
[2019-05-17 05:02] LABS: Calcium 8.2 MG/DL (8.5-10.1)
[2019-05-17] MEDS: INSULIN REGULAR 100 UNIT/ML SUBCUT SCH ×3 (05:42→17:53)
[2019-05-17] MEDS: hydrALAZINE 25 MG TABLET PO SCH ×3 (08:29→21:00)
[2019-05-17] MEDS: cloNIDine 0.1 MG TABLET PO SCH ×2 (08:29→21:00)
[2019-05-17] MEDS: carvediloL 25 MG TABLET PO SCH ×2 (08:51→16:47)
[2019-05-17] MEDS: APIXABAN 5 MG TABLET PO SCH ×2 (08:52→21:00)
[2019-05-17] MEDS: LOSARTAN 50 MG TABLET PO SCH (11:38)
[2019-05-17] MEDS: amLODIPine 10 MG TABLET PO SCH (11:38)
[2019-05-17] MEDS: FAMOTIDINE 20 MG/2 ML VIAL IV SCH (21:00)
[2019-05-18] MEDS: INSULIN REGULAR 100 UNIT/ML SUBCUT SCH ×2 (00:33→05:47)
[2019-05-18] MEDS: amLODIPine 10 MG TABLET PO SCH (08:00)
[2019-05-18] MEDS: APIXABAN 5 MG TABLET PO SCH ×2 (08:00→21:29)
[2019-05-18] MEDS: LOSARTAN 50 MG TABLET PO SCH (08:00)
[2019-05-18] MEDS: cloNIDine 0.1 MG TABLET PO SCH ×2 (08:00→21:30)
[2019-05-18] MEDS: carvediloL 25 MG TABLET PO SCH ×2 (08:00→17:10)
[2019-05-18] MEDS: hydrALAZINE 25 MG TABLET PO SCH ×3 (08:00→21:30)
[2019-05-18] MEDS ORDERED: ceFAZolin 1,000 MG in SYRINGE 1 EACH IV ONE (10:03)
[2019-05-19 05:31] LABS: Basophils % 0.7 % (0.0-0.8); Eosinophils # 0.2 10*3/uL (0.0-0.87); Eosinophils % 5.1 % (0.00-10.9); Hematocrit 32.1 VOL% (35.7-47.0); Hemoglobin 9.9 GM/DL (12.0-16.0); Immature Granulocytes % 0.7 %; Immature Granulocytes Absolute 0.03 #; Lymphocytes # 0.8 10*3/uL (1.4-4.0); Lymphocytes % 16.9 % (21.3-54.2); Mean Corpuscular HGB Conc 30.8 GM/DL (32-36); Mean Platelet Volume 10.5 FL (9.6-12.0); Monocytes % 14.6 % (1.7-12.7); Platelet Count 261 T/CUMM (130-400); Red Blood Count 3.45 MC/CUMM (3.8-5.5); Red Cell Distribution Width 18.1 % (9.3-17.3); White Blood Count 4.5 T/CUMM (4-12)
[2019-05-19] MEDS ORDERED: ceFAZolin 1,000 MG in SYRINGE 1 EACH IV ONE (07:00)
[2019-05-19] MEDS ORDERED: LIDOCAINE 1%/EPI INJ 20 ML VIAL ONE (07:56)
[2019-05-19] MEDS ORDERED: BUPIVACAINE 0.5% /EPI 10 ML VIAL ONE (07:56)
[2019-05-19] MEDS ORDERED: SODIUM CHLORIDE 0.9% 250 ML IV SCH (08:00)
[2019-05-19] MEDS ORDERED: LIDOCAINE 2% 5 ML VIAL ONE (09:14)
[2019-05-19] MEDS ORDERED: PROPOFOL 200 MG/20 ML VIAL IV ONE (09:14)
[2019-05-19] MEDS ORDERED: MIDAZOLAM 2 MG/2 ML VIAL ONE (09:15)
[2019-05-19] MEDS ORDERED: fentaNYL 100 MCG/2 ML VIAL ONE (09:15)
[2019-05-19] MEDS: hydrALAZINE 25 MG TABLET PO SCH ×2 (14:14→15:59)
[2019-05-19] MEDS: carvediloL 25 MG TABLET PO SCH (14:14)
[2019-05-19] MEDS: LOSARTAN 50 MG TABLET PO SCH (14:15)
[2019-05-19] MEDS: amLODIPine 10 MG TABLET PO SCH (14:15)
[2019-05-19] MEDS: cloNIDine 0.1 MG TABLET PO SCH (14:15)
[2019-05-19] MEDS: APIXABAN 5 MG TABLET PO SCH (14:15)
[2019-05-19] MEDS ORDERED: INFLUENZA VIRUS VACCINE 0.5 ML SYRINGE IM ONE (15:00)
[2019-05-19 15:44] VITALS: BP 154/103
== END 2019-05-19 17:15 | disposition home health service (06) | DRG 987 ==
LOC: N.ED 07:38 → SUATTDRO 09:19 → N.EDINP 09:19 → N.CC 15:24 → N.5E 05-18 12:36
PROVIDERS: ADMIT Internal Medicine; ATTEND Internal Medicine
PROC: VAVDCFI (2019-05-19 08:11)

== ENCOUNTER 2019-08-21 08:03 | Observation (INO) ==
[2019-08-21] MEDS ORDERED: carvediloL 3.125 MG TABLET PO STA (08:24)
[2019-08-21] MEDS ORDERED: amLODIPine 5 MG TABLET PO STA (08:24)
[2019-08-21 08:51] LABS: Basophils # 0.1 10*3/uL (0.0-0.2); Basophils % 0.8 % (0.0-0.8); Eosinophils # 0.1 10*3/uL (0.0-0.87); Eosinophils % 2.1 % (0.00-10.9); Hematocrit 30.7 VOL% (35.7-47.0); Hemoglobin 9.8 GM/DL (12.0-16.0); Immature Granulocytes % 0.3 %; Immature Granulocytes Absolute 0.02 #; Lymphocytes # 0.6 10*3/uL (1.4-4.0); Mean Corpuscular HGB Conc 31.9 GM/DL (32-36); Mean Platelet Volume 10.7 FL (9.6-12.0); Monocytes % 7.6 % (1.7-12.7); Neutrophils % 79.2 % (38.7-73.9); Platelet Count 160 T/CUMM (130-400); Red Blood Count 3.23 MC/CUMM (3.8-5.5); Red Cell Distribution Width 17.3 % (9.3-17.3); White Blood Count 6.2 T/CUMM (4-12)
[2019-08-21] MEDS ORDERED: carvediloL 25 MG TABLET PO ONE (09:00)
[2019-08-21 09:14] LABS: Albumin 3.3 G/DL (3.4-5.0); Calcium 8.3 MG/DL (8.5-10.1); Total Protein 7.2 G/DL (6.4-8.3)
[2019-08-21 09:20] LABS: PT Patient Result 11.2 SECS (9.6-12.2); Partial Thromboplastin Time 28.2 SECS (20.8-36.0)
[2019-08-21] MEDS ORDERED: DOCUSATE SODIUM 100 MG CAPSULE PO PRN (10:07)
[2019-08-21] MEDS ORDERED: NICOTINE 21 MG/24 HR PATCH TRANSDERM PRN (10:07)
[2019-08-21] MEDS ORDERED: ONDANSETRON 4 MG/2 ML VIAL IV PRN (10:07)
[2019-08-21] MEDS ORDERED: ACETAMINOPHEN 325 MG TABLET PO PRN (10:07)
[2019-08-21 10:49] LABS: Risk Ratio 1.96; Thyroid Stimulating Hormone 0.588 uIU/ml (0.358-3.74); VLDL CHOLESTEROL 10.2 MG/DL
[2019-08-21] MEDS: hydrALAZINE 25 MG TABLET PO SCH ×2 (17:06→20:26)
[2019-08-21] MEDS: carvediloL 25 MG TABLET PO SCH (20:25)
[2019-08-21] MEDS: cloNIDine 0.1 MG TABLET PO SCH (20:26)
[2019-08-21] MEDS: APIXABAN 5 MG TABLET PO SCH (20:26)
[2019-08-22 03:56] LABS: Basophils % 0.6 % (0.0-0.8); Eosinophils # 0.1 10*3/uL (0.0-0.87); Hematocrit 29.3 VOL% (35.7-47.0); Hemoglobin 9.2 GM/DL (12.0-16.0); Immature Granulocytes % 0.2 %; Immature Granulocytes Absolute 0.01 #; Lymphocytes # 0.7 10*3/uL (1.4-4.0); Mean Corpuscular HGB Conc 31.4 GM/DL (32-36); Mean Corpuscular Volume 94.5 FL (87-102); Mean Platelet Volume 10.9 FL (9.6-12.0); Neutrophils % 73.2 % (38.7-73.9); Platelet Count 154 T/CUMM (130-400); Red Cell Distribution Width 17.2 % (9.3-17.3); White Blood Count 4.7 T/CUMM (4-12)
[2019-08-22 04:35] LABS: Calcium 8.2 MG/DL (8.5-10.1)
[2019-08-22 08:13] VITALS: BP 141/89
[2019-08-22] MEDS ORDERED: amLODIPine 10 MG TABLET PO SCH (09:00)
[2019-08-22] MEDS ORDERED: PANTOPRAZOLE 40 MG TABLET PO SCH (09:00)
[2019-08-22] MEDS: cloNIDine 0.1 MG TABLET PO SCH (09:01)
[2019-08-22] MEDS: hydrALAZINE 25 MG TABLET PO SCH (09:01)
[2019-08-22] MEDS: APIXABAN 5 MG TABLET PO SCH (09:01)
[2019-08-22] MEDS: carvediloL 25 MG TABLET PO SCH (09:02)
== END 2019-08-22 10:20 | disposition home or self-care (01) ==
LOC: N.ED 08:03 → N.EDINP 09:38 → OBSVTOIN 09:38 → SUATTDRO 09:38 → INTOOBSV 09:38 → N.TELEN 10:28 → N.2W 10:47
PROVIDERS: ADMIT Internal Medicine; ATTEND Internal Medicine

== ENCOUNTER 2022-06-02 10:26 | Inpatient (IN) ==
[2022-06-02] MEDS ORDERED: ONDANSETRON 4 MG/2 ML VIAL IV STA (10:58)
[2022-06-02] MEDS ORDERED: ASPIRIN 325 MG TABLET PO STA (10:58)
[2022-06-02] MEDS ORDERED: FAMOTIDINE 20 MG/2 ML VIAL IV STA (10:59)
[2022-06-02 11:43] LABS: Basophils % 0.9 % (0.0-0.8); Eosinophils % 0.6 % (0.00-10.9); Hematocrit 42.5 VOL% (35.7-47.0); Hemoglobin 13.3 GM/DL (12.0-16.0); Immature Granulocytes % 0.6 %; Immature Granulocytes Absolute 0.02 #; Lymphocytes # 0.7 10*3/uL (1.4-4.0); Lymphocytes % 21.3 % (21.3-54.2); Mean Corpuscular HGB Conc 31.3 GM/DL (32-36); Mean Corpuscular Volume 95.5 FL (87-102); Mean Platelet Volume 10.3 FL (9.6-12.0); Monocytes # 0.3 10*3/uL (0.11-0.8); Monocytes % 7.3 % (1.7-12.7); Neutrophils % 69.3 % (38.7-73.9); Platelet Count 129 T/CUMM (130-400); Red Blood Count 4.45 MC/CUMM (3.8-5.5); Red Cell Distribution Width 15.5 % (9.3-17.3); White Blood Count 3.4 T/CUMM (4-12)
[2022-06-02 12:04] LABS: Albumin 2.9 G/DL (3.4-5.0); Bilirubin,Total 0.9 MG/DL (0.20-1.00); Calcium 8.5 MG/DL (8.5-10.1); Osmolality,Calculated 278.5 MOS/KG (273-304); Potassium 3.7 MMOL/L (3.5-5.1); Total Protein 6.1 G/DL (6.4-8.2)
[2022-06-02 12:08] LABS: INR 1.2; Partial Thromboplastin Time 36.7 SECS (23.7-32.9)
[2022-06-02 12:28] LABS: Anisocytosis Slight; Burr Cells 1+; Macrocytosis Slight; Platelet Estimate Adequate
[2022-06-02] MEDS ORDERED: ONDANSETRON 4 MG/2 ML VIAL IV PRN (13:06)
[2022-06-02] MEDS ORDERED: ALBUTEROL 2.5 MG/3 ML NEB RESP TX PRN (13:06)
[2022-06-02] MEDS ORDERED: SODIUM CHLORIDE 0.9% 1,000 ML IV SCH (13:30)
[2022-06-02] MEDS ORDERED: PANTOPRAZOLE 40 MG VIAL IV SCH (13:30)
[2022-06-02] MEDS: PIPERACILLIN/TAZOBACTAM 3,375 MG in SODIUM CHLORIDE 0.9% 100 ML IV SCH ×2 (16:42→17:12)
[2022-06-02] MEDS: PANTOPRAZOLE 40 MG VIAL IV SCH (21:53)
[2022-06-02] MEDS: cloNIDine 0.1 MG TABLET PO SCH ×2 (21:53→23:48)
[2022-06-03 04:50] LABS: Basophils % 0.8 % (0.0-0.8); Eosinophils % 1.1 % (0.00-10.9); Hematocrit 35.5 VOL% (35.7-47.0); Hemoglobin 11.1 GM/DL (12.0-16.0); Immature Granulocytes % 0.3 %; Immature Granulocytes Absolute 0.01 #; Lymphocytes # 0.9 10*3/uL (1.4-4.0); Lymphocytes % 26.1 % (21.3-54.2); Mean Corpuscular HGB Conc 31.3 GM/DL (32-36); Mean Corpuscular Volume 96.7 FL (87-102); Mean Platelet Volume 10.3 FL (9.6-12.0); Monocytes # 0.4 10*3/uL (0.11-0.8); Monocytes % 10.4 % (1.7-12.7); Neutrophils % 61.3 % (38.7-73.9); Platelet Count 115 T/CUMM (130-400); Red Blood Count 3.67 MC/CUMM (3.8-5.5); Red Cell Distribution Width 15.4 % (9.3-17.3); White Blood Count 3.6 T/CUMM (4-12)
[2022-06-03 05:00] LABS: INR 1.1; PT Patient Result 12.5 SECS (10.1-12.1)
[2022-06-03 05:20] LABS: Albumin 2.4 G/DL (3.4-5.0); Bilirubin,Total 0.8 MG/DL (0.20-1.00); Calcium 7.9 MG/DL (8.5-10.1); Osmolality,Calculated 278.5 MOS/KG (273-304); Potassium 3.1 MMOL/L (3.5-5.1); Total Protein 5.3 G/DL (6.4-8.2)
[2022-06-03] MEDS ORDERED: POTASSIUM CHLORIDE 20 MEQ TABLET PO ONE (07:43)
[2022-06-03] MEDS: MULTIVITAMIN (BEROCCA) TABLET PO SCH ×2 (09:07→09:10)
[2022-06-03] MEDS: cefTRIAXone 1,000 MG in SODIUM CHLORIDE 0.9% 100 ML IV SCH (09:10)
[2022-06-03] MEDS: PANTOPRAZOLE 40 MG VIAL IV SCH ×2 (09:12→21:47)
[2022-06-03] MEDS: cloNIDine 0.1 MG TABLET PO SCH ×2 (09:40→21:47)
[2022-06-03] MEDS: amLODIPine 10 MG TABLET PO SCH (09:40)
[2022-06-03] MEDS ORDERED: VANCOMYCIN INJ 750 MG in SODIUM CHLORIDE 0.9% 250 ML IV PRN (10:08)
[2022-06-03] MEDS: AZITHROMYCIN INJ 500 MG in SODIUM CHLORIDE 0.9% 250 ML IV SCH (10:22)
[2022-06-03] MEDS ORDERED: VANCOMYCIN INJ 2,000 MG in SODIUM CHLORIDE 0.9% 500 ML IV ONE (11:00)
[2022-06-03 13:21] LABS: Hepatitis B Core IgM Quant 0.07 Index; Hepatitis B Surface Ag Quant 0.33 Index; Hepatitis B Surface Ag Result Non-Reactive (NonReactive); Hepatitis C Virus Ab Quant < 0.02 Index; Hepatitis C Virus Ab Result Non-Reactive (NonReactive)
[2022-06-04] MEDS: cloNIDine 0.1 MG TABLET PO SCH ×3 (07:49→21:33)
[2022-06-04] MEDS: amLODIPine 10 MG TABLET PO SCH ×2 (07:49→08:40)
[2022-06-04] MEDS: MULTIVITAMIN (BEROCCA) TABLET PO SCH ×3 (07:49→08:41)
[2022-06-04] MEDS: cefTRIAXone 1,000 MG in SODIUM CHLORIDE 0.9% 100 ML IV SCH ×2 (07:49→08:40)
[2022-06-04] MEDS: PANTOPRAZOLE 40 MG VIAL IV SCH ×3 (07:50→21:33)
[2022-06-04 08:57] LABS: Basophils % 0.8 % (0.0-0.8); Eosinophils % 1.1 % (0.00-10.9); Hematocrit 39.3 VOL% (35.7-47.0); Hemoglobin 11.9 GM/DL (12.0-16.0); Lymphocytes # 0.9 10*3/uL (1.4-4.0); Lymphocytes % 25.6 % (21.3-54.2); Mean Corpuscular HGB Conc 30.3 GM/DL (32-36); Mean Corpuscular Volume 99.2 FL (87-102); Mean Platelet Volume 10.9 FL (9.6-12.0); Monocytes # 0.4 10*3/uL (0.11-0.8); Neutrophils % 62.5 % (38.7-73.9); Platelet Count 110 T/CUMM (130-400); Red Blood Count 3.96 MC/CUMM (3.8-5.5); Red Cell Distribution Width 15.4 % (9.3-17.3); White Blood Count 3.6 T/CUMM (4-12)
[2022-06-04] MEDS: AZITHROMYCIN INJ 500 MG in SODIUM CHLORIDE 0.9% 250 ML IV SCH (09:03)
[2022-06-04 09:18] LABS: Calcium 8.3 MG/DL (8.5-10.1); Osmolality,Calculated 282.1 MOS/KG (273-304); Potassium 4.1 MMOL/L (3.5-5.1)
[2022-06-04] MEDS ORDERED: APIXABAN 5 MG TABLET PO SCH (21:00)
[2022-06-04] MEDS: VANCOMYCIN 125 MG CAPSULE PO SCH (21:33)
[2022-06-05] MEDS: VANCOMYCIN 125 MG CAPSULE PO SCH ×4 (03:22→21:10)
[2022-06-05 06:35] LABS: Basophils % 0.8 % (0.0-0.8); Eosinophils # 0.1 10*3/uL (0.0-0.87); Eosinophils % 1.4 % (0.00-10.9); Hematocrit 35.9 VOL% (35.7-47.0); Hemoglobin 10.8 GM/DL (12.0-16.0); Immature Granulocytes % 0.6 %; Immature Granulocytes Absolute 0.02 #; Lymphocytes # 1.1 10*3/uL (1.4-4.0); Lymphocytes % 30.1 % (21.3-54.2); Mean Corpuscular HGB Conc 30.1 GM/DL (32-36); Mean Corpuscular Volume 98.6 FL (87-102); Mean Platelet Volume 10.9 FL (9.6-12.0); Monocytes # 0.4 10*3/uL (0.11-0.8); Monocytes % 11.2 % (1.7-12.7); Neutrophils % 55.9 % (38.7-73.9); Platelet Count 94 T/CUMM (130-400); Red Blood Count 3.64 MC/CUMM (3.8-5.5); Red Cell Distribution Width 15.1 % (9.3-17.3); White Blood Count 3.6 T/CUMM (4-12)
[2022-06-05 06:55] LABS: Calcium 7.9 MG/DL (8.5-10.1); Osmolality,Calculated 276.7 MOS/KG (273-304); Potassium 3.4 MMOL/L (3.5-5.1)
[2022-06-05] MEDS: PANTOPRAZOLE 40 MG VIAL IV SCH ×2 (13:04→21:09)
[2022-06-05] MEDS: AZITHROMYCIN INJ 500 MG in SODIUM CHLORIDE 0.9% 250 ML IV SCH (13:06)
[2022-06-05] MEDS: cloNIDine 0.1 MG TABLET PO SCH ×2 (13:06→21:09)
[2022-06-05] MEDS: amLODIPine 10 MG TABLET PO SCH (13:06)
[2022-06-05] MEDS: MULTIVITAMIN (BEROCCA) TABLET PO SCH ×2 (13:06→13:07)
[2022-06-05] MEDS: cefTRIAXone 1,000 MG in SODIUM CHLORIDE 0.9% 100 ML IV SCH (14:13)
[2022-06-06] MEDS: VANCOMYCIN 125 MG CAPSULE PO SCH ×4 (03:52→20:27)
[2022-06-06 05:22] LABS: Basophils % 1.2 % (0.0-0.8); Eosinophils # 0.1 10*3/uL (0.0-0.87); Eosinophils % 1.8 % (0.00-10.9); Hematocrit 34.6 VOL% (35.7-47.0); Hemoglobin 10.2 GM/DL (12.0-16.0); Immature Granulocytes % 0.3 %; Immature Granulocytes Absolute 0.01 #; Lymphocytes % 30.5 % (21.3-54.2); Mean Corpuscular HGB Conc 29.5 GM/DL (32-36); Mean Corpuscular Volume 100.9 FL (87-102); Mean Platelet Volume 11.8 FL (9.6-12.0); Monocytes # 0.3 10*3/uL (0.11-0.8); Monocytes % 10.1 % (1.7-12.7); Neutrophils % 56.1 % (38.7-73.9); Platelet Count 76 T/CUMM (130-400); Red Blood Count 3.43 MC/CUMM (3.8-5.5); Red Cell Distribution Width 15.2 % (9.3-17.3); White Blood Count 3.3 T/CUMM (4-12)
[2022-06-06 05:48] LABS: Calcium 8.4 MG/DL (8.5-10.1); Osmolality,Calculated 278.4 MOS/KG (273-304); Potassium 3.5 MMOL/L (3.5-5.1)
[2022-06-06 06:19] LABS: Platelet Estimate Decreased
[2022-06-06] MEDS: amLODIPine 10 MG TABLET PO SCH (08:42)
[2022-06-06] MEDS: cloNIDine 0.1 MG TABLET PO SCH ×2 (08:42→20:27)
[2022-06-06] MEDS: MULTIVITAMIN (BEROCCA) TABLET PO SCH (08:42)
[2022-06-06] MEDS: cefTRIAXone 1,000 MG in SODIUM CHLORIDE 0.9% 100 ML IV SCH (08:43)
[2022-06-06] MEDS: AZITHROMYCIN INJ 500 MG in SODIUM CHLORIDE 0.9% 250 ML IV SCH (08:43)
[2022-06-06] MEDS: PANTOPRAZOLE 40 MG VIAL IV SCH ×2 (08:43→20:30)
[2022-06-07] MEDS: VANCOMYCIN 125 MG CAPSULE PO SCH ×4 (03:24→21:31)
[2022-06-07] MEDS: amLODIPine 10 MG TABLET PO SCH (08:00)
[2022-06-07] MEDS: cefTRIAXone 1,000 MG in SODIUM CHLORIDE 0.9% 100 ML IV SCH (08:01)
[2022-06-07] MEDS: MULTIVITAMIN (BEROCCA) TABLET PO SCH (08:01)
[2022-06-07] MEDS: cloNIDine 0.1 MG TABLET PO SCH ×2 (08:01→21:31)
[2022-06-07] MEDS: PANTOPRAZOLE 40 MG VIAL IV SCH ×2 (08:02→21:32)
[2022-06-07] MEDS: AZITHROMYCIN INJ 500 MG in SODIUM CHLORIDE 0.9% 250 ML IV SCH (08:04)
[2022-06-07] MEDS: POLYETHYLENE GLYCOL POWDER 17 GM PACK PO SCH (14:04)
[2022-06-07] MEDS: DOCUSATE SODIUM 100 MG CAPSULE PO SCH (21:31)
[2022-06-08] MEDS: VANCOMYCIN 125 MG CAPSULE PO SCH ×4 (03:59→21:23)
[2022-06-08 08:00] LABS: Basophils # 0.1 10*3/uL (0.0-0.2); Basophils % 1.2 % (0.0-0.8); Eosinophils # 0.1 10*3/uL (0.0-0.87); Eosinophils % 3.3 % (0.00-10.9); Hematocrit 33.8 VOL% (35.7-47.0); Hemoglobin 10.5 GM/DL (12.0-16.0); Immature Granulocytes % 0.5 %; Immature Granulocytes Absolute 0.02 #; Lymphocytes # 1.1 10*3/uL (1.4-4.0); Lymphocytes % 25.3 % (21.3-54.2); Mean Corpuscular HGB Conc 31.1 GM/DL (32-36); Mean Corpuscular Volume 95.5 FL (87-102); Mean Platelet Volume 11.5 FL (9.6-12.0); Monocytes # 0.4 10*3/uL (0.11-0.8); Monocytes % 10.4 % (1.7-12.7); Neutrophils % 59.3 % (38.7-73.9); Platelet Count 101 T/CUMM (130-400); Red Blood Count 3.54 MC/CUMM (3.8-5.5); Red Cell Distribution Width 15.2 % (9.3-17.3); White Blood Count 4.2 T/CUMM (4-12)
[2022-06-08] MEDS: POLYETHYLENE GLYCOL POWDER 17 GM PACK PO SCH (08:11)
[2022-06-08] MEDS: amLODIPine 10 MG TABLET PO SCH (08:11)
[2022-06-08] MEDS: cefTRIAXone 1,000 MG in SODIUM CHLORIDE 0.9% 100 ML IV SCH (08:11)
[2022-06-08] MEDS: DOCUSATE SODIUM 100 MG CAPSULE PO SCH ×2 (08:11→21:23)
[2022-06-08] MEDS: PANTOPRAZOLE 40 MG VIAL IV SCH ×2 (08:11→21:23)
[2022-06-08] MEDS: MULTIVITAMIN (BEROCCA) TABLET PO SCH (08:12)
[2022-06-08] MEDS: cloNIDine 0.1 MG TABLET PO SCH ×2 (08:12→21:23)
[2022-06-08 08:18] LABS: Calcium 9.2 MG/DL (8.5-10.1); Potassium 3.4 MMOL/L (3.5-5.1)
[2022-06-09] MEDS: VANCOMYCIN 125 MG CAPSULE PO SCH ×4 (02:44→20:56)
[2022-06-09 04:50] LABS: Eosinophils # 0.1 10*3/uL (0.0-0.87); Eosinophils % 2.6 % (0.00-10.9); Hematocrit 33.1 VOL% (35.7-47.0); Hemoglobin 10.4 GM/DL (12.0-16.0); Immature Granulocytes % 0.5 %; Immature Granulocytes Absolute 0.02 #; Lymphocytes % 25.9 % (21.3-54.2); Mean Corpuscular HGB Conc 31.4 GM/DL (32-36); Mean Corpuscular Volume 95.4 FL (87-102); Mean Platelet Volume 11.5 FL (9.6-12.0); Monocytes # 0.5 10*3/uL (0.11-0.8); Monocytes % 12.6 % (1.7-12.7); Neutrophils % 57.4 % (38.7-73.9); Platelet Count 114 T/CUMM (130-400); Red Blood Count 3.47 MC/CUMM (3.8-5.5); Red Cell Distribution Width 15.4 % (9.3-17.3); White Blood Count 3.8 T/CUMM (4-12)
[2022-06-09 05:14] LABS: Calcium 9.6 MG/DL (8.5-10.1); Osmolality,Calculated 282.4 MOS/KG (273-304); Potassium 3.4 MMOL/L (3.5-5.1)
[2022-06-09] MEDS ORDERED: PROMETHAZINE 25 MG/1 ML VIAL IM ONE (07:00)
[2022-06-09] MEDS ORDERED: MEPERIDINE 50 MG/1 ML VIAL IM ONE (07:00)
[2022-06-09] MEDS ORDERED: MIDAZOLAM 2 MG/2 ML VIAL IV ONE (07:30)
[2022-06-09] MEDS ORDERED: LIDOCAINE 1% 20 ML VIAL MISC INJ ONE (07:30)
[2022-06-09] MEDS ORDERED: LIDOCAINE 2% VISCOUS 100 ML BOTTLE SWISH/SPIT ONE (07:30)
[2022-06-09] MEDS ORDERED: LIDOCAINE 2% 20 ML VIAL RESP TX ONE (07:30)
[2022-06-09] MEDS ORDERED: AZITHROMYCIN 250 MG TABLET PO SCH (09:00)
[2022-06-09] MEDS: DOCUSATE SODIUM 100 MG CAPSULE PO SCH ×2 (09:55→20:56)
[2022-06-09] MEDS: cefTRIAXone 1,000 MG in SODIUM CHLORIDE 0.9% 100 ML IV SCH (09:56)
[2022-06-09] MEDS: MULTIVITAMIN (BEROCCA) TABLET PO SCH (09:56)
[2022-06-09] MEDS: POLYETHYLENE GLYCOL POWDER 17 GM PACK PO SCH (09:56)
[2022-06-09] MEDS: amLODIPine 10 MG TABLET PO SCH (09:56)
[2022-06-09] MEDS: cloNIDine 0.1 MG TABLET PO SCH ×2 (09:56→20:56)
[2022-06-09] MEDS: PANTOPRAZOLE 40 MG VIAL IV SCH (10:40)
[2022-06-09] MEDS: PANTOPRAZOLE 40 MG TABLET PO SCH (20:56)
[2022-06-10] MEDS: VANCOMYCIN 125 MG CAPSULE PO SCH ×2 (03:04→09:14)
[2022-06-10 05:22] LABS: Eosinophils # 0.2 10*3/uL (0.0-0.87); Eosinophils % 3.7 % (0.00-10.9); Hematocrit 32.9 VOL% (35.7-47.0); Immature Granulocytes % 0.2 %; Immature Granulocytes Absolute 0.01 #; Lymphocytes # 0.9 10*3/uL (1.4-4.0); Mean Corpuscular HGB Conc 30.4 GM/DL (32-36); Mean Corpuscular Volume 97.9 FL (87-102); Mean Platelet Volume 11.8 FL (9.6-12.0); Monocytes # 0.5 10*3/uL (0.11-0.8); Monocytes % 12.4 % (1.7-12.7); Neutrophils % 60.7 % (38.7-73.9); Platelet Count 120 T/CUMM (130-400); Red Blood Count 3.36 MC/CUMM (3.8-5.5); Red Cell Distribution Width 15.4 % (9.3-17.3); White Blood Count 4.1 T/CUMM (4-12)
[2022-06-10 05:35] LABS: Calcium 9.8 MG/DL (8.5-10.1); Osmolality,Calculated 278.1 MOS/KG (273-304); Potassium 3.7 MMOL/L (3.5-5.1)
[2022-06-10] MEDS: cefTRIAXone 1,000 MG in SODIUM CHLORIDE 0.9% 100 ML IV SCH (09:13)
[2022-06-10] MEDS: PANTOPRAZOLE 40 MG TABLET PO SCH (09:14)
[2022-06-10] MEDS: POLYETHYLENE GLYCOL POWDER 17 GM PACK PO SCH (09:14)
[2022-06-10] MEDS: MULTIVITAMIN (BEROCCA) TABLET PO SCH (09:14)
[2022-06-10] MEDS: amLODIPine 10 MG TABLET PO SCH (09:14)
[2022-06-10] MEDS: DOCUSATE SODIUM 100 MG CAPSULE PO SCH (09:14)
[2022-06-10] MEDS: cloNIDine 0.1 MG TABLET PO SCH (09:15)
[2022-06-10] MEDS ORDERED: TUBERCULIN SKIN TEST 0.1 ML SYRINGE INTRADERM ONE (11:00)
[2022-06-10 12:09] VITALS: BP 111/56
[2022-06-12 19:03] LABS: M. Tuberculosis PCR Result Negative (Negative); M. Tuberculosis PCR Source BRONCH WASH
== END 2022-06-10 13:15 | DRG 371 ==
LOC: N.ED 10:26 → SUATTDRO 13:06 → N.EDINP 13:06 → N.5E 15:55
PROVIDERS: ADMIT Family Medicine; ATTEND Internal Medicine

== ENCOUNTER 2022-06-18 20:10 | Inpatient (IN) ==
[2022-06-18 21:25] LABS: Basophils % 0.4 % (0.0-0.8); Eosinophils % 0.3 % (0.00-10.9); Hematocrit 20.8 VOL% (35.7-47.0); Immature Granulocytes % 0.4 %; Immature Granulocytes Absolute 0.03 #; Lymphocytes % 12.1 % (21.3-54.2); Mean Corpuscular HGB Conc 30.3 GM/DL (32-36); Mean Platelet Volume 10.1 FL (9.6-12.0); Monocytes # 0.6 10*3/uL (0.11-0.8); Neutrophils % 79.8 % (38.7-73.9); Platelet Count 237 T/CUMM (130-400); Red Cell Distribution Width 17.6 % (9.3-17.3); White Blood Count 7.9 T/CUMM (4-12)
[2022-06-18 21:29] LABS: Hemoglobin 6.3 GM/DL (12.0-16.0)
[2022-06-18 21:36] LABS: INR 1.1; PT Patient Result 12.3 SECS (10.1-12.1)
[2022-06-18 21:44] LABS: Albumin 2.8 G/DL (3.4-5.0); Bilirubin,Total 0.9 MG/DL (0.20-1.00); Calcium 9.4 MG/DL (8.5-10.1); Osmolality,Calculated 277.4 MOS/KG (273-304); Potassium 3.1 MMOL/L (3.5-5.1); Total Protein 6.7 G/DL (6.4-8.2)
[2022-06-18] MEDS ORDERED: SODIUM CHLORIDE 0.9% 1,000 ML IV PRN (21:49)
[2022-06-18] MEDS ORDERED: ONDANSETRON 4 MG/2 ML VIAL IV PRN (23:05)
[2022-06-18] MEDS ORDERED: SIMETHICONE CHEW 125 MG TABLET PO PRN (23:05)
[2022-06-18] MEDS ORDERED: ACETAMINOPHEN 325 MG TABLET PO PRN (23:05)
[2022-06-18] MEDS ORDERED: methylPREDNISolone SOD SUC 125 MG/2 ML VIAL IV STA (23:12)
[2022-06-18] MEDS ORDERED: POTASSIUM CHLORIDE 20 MEQ TABLET PO STA (23:19)
[2022-06-18] MEDS ORDERED: CEFEPIME 2,000 MG in SODIUM CHLORIDE 0.9% 100 ML IV SCH (23:30)
[2022-06-19] MEDS ORDERED: LEVOFLOXACIN INJ 750 MG/150 ML PREMIX IV SCH
[2022-06-19] MEDS ORDERED: CEFEPIME 1,000 MG in SODIUM CHLORIDE 0.9% 100 ML IV SCH
[2022-06-19] MEDS: ALBUTEROL 2.5 MG/3 ML NEB RESP TX SCH ×4 (01:58→19:20)
[2022-06-19] MEDS: PANTOPRAZOLE 40 MG VIAL IV SCH ×2 (02:29→08:50)
[2022-06-19 02:55] LABS: Basophils % 0.3 % (0.0-0.8); Eosinophils % 0.4 % (0.00-10.9); Hematocrit 23.9 VOL% (35.7-47.0); Hemoglobin 7.6 GM/DL (12.0-16.0); Immature Granulocytes % 0.3 %; Immature Granulocytes Absolute 0.02 #; Lymphocytes # 0.9 10*3/uL (1.4-4.0); Lymphocytes % 10.9 % (21.3-54.2); Mean Corpuscular HGB Conc 31.8 GM/DL (32-36); Mean Corpuscular Volume 93.7 FL (87-102); Mean Platelet Volume 10.2 FL (9.6-12.0); Monocytes # 0.7 10*3/uL (0.11-0.8); Monocytes % 8.8 % (1.7-12.7); Neutrophils % 79.3 % (38.7-73.9); Platelet Count 185 T/CUMM (130-400); Red Blood Count 2.55 MC/CUMM (3.8-5.5); Red Cell Distribution Width 17.7 % (9.3-17.3); White Blood Count 7.9 T/CUMM (4-12)
[2022-06-19 03:14] LABS: Calcium 7.8 MG/DL (8.5-10.1); Osmolality,Calculated 271.8 MOS/KG (273-304)
[2022-06-19] MEDS ORDERED: methylPREDNISolone SOD SUC 125 MG/2 ML VIAL IV ONE (03:54)
[2022-06-19] MEDS ORDERED: FUROSEMIDE 40 MG/4 ML VIAL IV ONE ×2 (04:00→09:30)
[2022-06-19] MEDS: amLODIPine 10 MG TABLET PO SCH (08:49)
[2022-06-19] MEDS: methylPREDNISolone SOD SUC 40 MG/1 ML VIAL IV SCH ×2 (10:20→17:22)
[2022-06-19 12:18] LABS: % Iron Saturation 81.2 % (18-50)
[2022-06-19 12:43] LABS: Folate 17.56 NG/ML (5.38-24.0)
[2022-06-20] MEDS: ALBUTEROL 2.5 MG/3 ML NEB RESP TX SCH ×4 (00:18→19:41)
[2022-06-20] MEDS: cloNIDine 0.1 MG TABLET PO SCH ×4 (00:28→21:05)
[2022-06-20] MEDS: methylPREDNISolone SOD SUC 40 MG/1 ML VIAL IV SCH (00:37)
[2022-06-20] MEDS ORDERED: ERGOCALCIFEROL 50,000 UNIT CAPSULE PO SCH (09:00)
[2022-06-20 10:24] LABS: Basophils % 0.1 % (0.0-0.8); Hematocrit 25.9 VOL% (35.7-47.0); Immature Granulocytes % 0.6 %; Immature Granulocytes Absolute 0.05 #; Lymphocytes # 0.5 10*3/uL (1.4-4.0); Lymphocytes % 5.2 % (21.3-54.2); Mean Corpuscular HGB Conc 30.9 GM/DL (32-36); Mean Platelet Volume 10.2 FL (9.6-12.0); Monocytes # 0.4 10*3/uL (0.11-0.8); Monocytes % 4.7 % (1.7-12.7); NRBC # 0.03 10*3/uL; Neutrophils % 89.4 % (38.7-73.9); Platelet Count 219 T/CUMM (130-400); Red Blood Count 2.67 MC/CUMM (3.8-5.5); Red Cell Distribution Width 18.4 % (9.3-17.3); White Blood Count 8.7 T/CUMM (4-12)
[2022-06-20 10:42] LABS: Calcium 10.8 MG/DL (8.5-10.1); Osmolality,Calculated 278.5 MOS/KG (273-304); Potassium 4.2 MMOL/L (3.5-5.1)
[2022-06-20] MEDS: amLODIPine 10 MG TABLET PO SCH (10:54)
[2022-06-20] MEDS: PANTOPRAZOLE 40 MG VIAL IV SCH (10:54)
[2022-06-21] MEDS: ALBUTEROL 2.5 MG/3 ML NEB RESP TX SCH (00:33)
[2022-06-21 07:23] LABS: Basophils % 0.1 % (0.0-0.8); Hematocrit 25.8 VOL% (35.7-47.0); Hemoglobin 7.8 GM/DL (12.0-16.0); Immature Granulocytes % 0.9 %; Immature Granulocytes Absolute 0.09 #; Lymphocytes # 0.6 10*3/uL (1.4-4.0); Lymphocytes % 5.5 % (21.3-54.2); Mean Corpuscular HGB Conc 30.2 GM/DL (32-36); Mean Corpuscular Volume 98.1 FL (87-102); Mean Platelet Volume 10.3 FL (9.6-12.0); Monocytes # 0.5 10*3/uL (0.11-0.8); Monocytes % 5.3 % (1.7-12.7); NRBC # 0.02 10*3/uL; Neutrophils % 88.2 % (38.7-73.9); Platelet Count 192 T/CUMM (130-400); Red Blood Count 2.63 MC/CUMM (3.8-5.5); Red Cell Distribution Width 18.7 % (9.3-17.3); White Blood Count 10.1 T/CUMM (4-12)
[2022-06-21 07:50] LABS: Calcium 10.5 MG/DL (8.5-10.1); Osmolality,Calculated 282.4 MOS/KG (273-304); Potassium 4.1 MMOL/L (3.5-5.1)
[2022-06-21] MEDS ORDERED: HEPARIN 5,000 UNIT/1 ML VIAL SUBCUT ONE (08:11)
[2022-06-21] MEDS: amLODIPine 10 MG TABLET PO SCH (08:44)
[2022-06-21] MEDS: cloNIDine 0.1 MG TABLET PO SCH ×2 (08:44→20:08)
[2022-06-21] MEDS: PANTOPRAZOLE 40 MG VIAL IV SCH (08:44)
[2022-06-21] MEDS: HALOPERIDOL 1 MG TABLET PO PRN ×2 (08:46→15:45)
[2022-06-21] MEDS ORDERED: EPOETIN ALFA-EPBX 4,000 UNIT/ML VIAL IV PRN (12:05)
[2022-06-21] MEDS: hydrALAZINE 25 MG TABLET PO SCH (20:08)
[2022-06-21] MEDS: OLANZapine 5 MG TABLET PO SCH (20:08)
[2022-06-22] MEDS: hydrALAZINE 20 MG/1 ML VIAL IV PRN (04:59)
[2022-06-22 06:31] LABS: Basophils % 0.1 % (0.0-0.8); Eosinophils % 0.3 % (0.00-10.9); Hematocrit 27.4 VOL% (35.7-47.0); Hemoglobin 8.5 GM/DL (12.0-16.0); Immature Granulocytes % 1.2 %; Immature Granulocytes Absolute 0.13 #; Lymphocytes # 1.2 10*3/uL (1.4-4.0); Mean Corpuscular Volume 97.5 FL (87-102); Mean Platelet Volume 10.3 FL (9.6-12.0); Monocytes # 0.6 10*3/uL (0.11-0.8); NRBC # 0.03 10*3/uL; Neutrophils % 82.4 % (38.7-73.9); Platelet Count 205 T/CUMM (130-400); Red Blood Count 2.81 MC/CUMM (3.8-5.5); Red Cell Distribution Width 18.7 % (9.3-17.3)
[2022-06-22 06:51] LABS: Calcium 10.4 MG/DL (8.5-10.1); Potassium 3.7 MMOL/L (3.5-5.1)
[2022-06-22] MEDS: SODIUM CHLORIDE 0.9% 1,000 ML IV SCH (13:27)
[2022-06-22] MEDS ORDERED: propofoL 200 MG/20 ML VIAL IV ONE (13:48)
[2022-06-22] MEDS ORDERED: ETOMIDATE 20 MG/10 ML VIAL IV ONE (13:48)
[2022-06-22] MEDS ORDERED: LIDOCAINE 2% 5 ML VIAL ONE (13:48)
[2022-06-22] MEDS: cloNIDine 0.1 MG TABLET PO SCH ×2 (15:01→20:57)
[2022-06-22] MEDS: amLODIPine 10 MG TABLET PO SCH (15:01)
[2022-06-22] MEDS: hydrALAZINE 25 MG TABLET PO SCH ×2 (15:01→20:57)
[2022-06-22] MEDS: PANTOPRAZOLE 40 MG VIAL IV SCH (15:02)
[2022-06-22] MEDS ORDERED: POLYETHYLENE GLYCOL POWDER 255 GM BOTTLE PO ONE (18:00)
[2022-06-22] MEDS: OLANZapine 5 MG TABLET PO SCH (20:58)
[2022-06-23] MEDS ORDERED: POLYETHYLENE GLYCOL POWDER 255 GM BOTTLE PO ONE (05:00)
[2022-06-23 06:20] LABS: Basophils % 0.3 % (0.0-0.8); Eosinophils % 0.4 % (0.00-10.9); Hematocrit 27.6 VOL% (35.7-47.0); Hemoglobin 8.4 GM/DL (12.0-16.0); Immature Granulocytes Absolute 0.15 #; Lymphocytes % 13.2 % (21.3-54.2); Mean Corpuscular HGB Conc 30.4 GM/DL (32-36); Mean Corpuscular Volume 98.6 FL (87-102); Mean Platelet Volume 10.7 FL (9.6-12.0); Monocytes # 0.8 10*3/uL (0.11-0.8); Monocytes % 10.5 % (1.7-12.7); Neutrophils % 73.6 % (38.7-73.9); Platelet Count 166 T/CUMM (130-400); Red Cell Distribution Width 19.3 % (9.3-17.3); White Blood Count 7.4 T/CUMM (4-12)
[2022-06-23 06:39] LABS: Calcium 9.4 MG/DL (8.5-10.1); Osmolality,Calculated 276.5 MOS/KG (273-304); Potassium 3.8 MMOL/L (3.5-5.1)
[2022-06-23 07:22] LABS: PT Patient Result 11.4 SECS (10.1-12.1)
[2022-06-23] MEDS: amLODIPine 10 MG TABLET PO SCH (09:32)
[2022-06-23] MEDS: hydrALAZINE 25 MG TABLET PO SCH ×2 (09:32→20:51)
[2022-06-23] MEDS: cloNIDine 0.1 MG TABLET PO SCH ×2 (09:32→20:51)
[2022-06-23] MEDS: PANTOPRAZOLE 40 MG VIAL IV SCH (09:36)
[2022-06-23] MEDS: hydrALAZINE 20 MG/1 ML VIAL IV PRN (09:38)
[2022-06-23] MEDS: SODIUM CHLORIDE 0.9% 1,000 ML IV SCH (13:30)
[2022-06-23] MEDS ORDERED: propofoL 200 MG/20 ML VIAL IV ONE (14:04)
[2022-06-23] MEDS ORDERED: LIDOCAINE 2% 5 ML VIAL ONE (14:04)
[2022-06-23] MEDS: OLANZapine 5 MG TABLET PO SCH (20:51)
[2022-06-24 04:52] LABS: Basophils % 0.2 % (0.0-0.8); Eosinophils % 0.5 % (0.00-10.9); Hematocrit 25.5 VOL% (35.7-47.0); Hemoglobin 7.8 GM/DL (12.0-16.0); Immature Granulocytes % 1.5 %; Immature Granulocytes Absolute 0.09 #; Lymphocytes % 16.5 % (21.3-54.2); Mean Corpuscular HGB Conc 30.6 GM/DL (32-36); Mean Corpuscular Volume 99.2 FL (87-102); Mean Platelet Volume 10.5 FL (9.6-12.0); Monocytes # 0.5 10*3/uL (0.11-0.8); Monocytes % 8.4 % (1.7-12.7); Neutrophils % 72.9 % (38.7-73.9); Platelet Count 162 T/CUMM (130-400); Red Blood Count 2.57 MC/CUMM (3.8-5.5); Red Cell Distribution Width 19.5 % (9.3-17.3); White Blood Count 5.9 T/CUMM (4-12)
[2022-06-24 05:20] LABS: Calcium 9.4 MG/DL (8.5-10.1); Osmolality,Calculated 284.1 MOS/KG (273-304); Potassium 3.7 MMOL/L (3.5-5.1)
[2022-06-24] MEDS: hydrALAZINE 25 MG TABLET PO SCH (12:46)
[2022-06-24] MEDS: amLODIPine 10 MG TABLET PO SCH (12:47)
[2022-06-24] MEDS: cloNIDine 0.1 MG TABLET PO SCH (12:47)
[2022-06-24 15:33] VITALS: BP 116/55
[2022-06-24] MEDS: SODIUM CHLORIDE 0.9% 1,000 ML IV SCH (18:31)
[2022-06-24] MEDS: PANTOPRAZOLE 40 MG VIAL IV SCH (18:31)
== END 2022-06-24 18:35 | DRG 811 ==
LOC: EDUNIT# → EDBD → N.ED 20:10 → SUATTDRO 23:05 → N.EDINP 23:05 → N.3E 23:46
PROVIDERS: ADMIT Internal Medicine; ATTEND Hospitalist